=== PATIENT | female | born 1995 | race Caucasian/White ===

== ENCOUNTER → 2017-10-21 18:05 | Outpatient (CLI) | payer SELFPAY ==
[2017-10-24 12:06] LABS: Neisseria gonorrhoeae, NAA Negative (Negative)
== END ==
PROVIDERS: Family Provider Family Medicine; PCP Family Medicine; Visit Provider Obstetrics & Gynecology
DX: Z34.90 Encounter for supervision of normal pregnancy, unspecified, unspecified trimester (principal); O23.42 Unspecified infection of urinary tract in pregnancy, second trimester
CPT/HCPCS: 87086; 87088; 87186; 87491; 87591

== ENCOUNTER → 2017-11-04 14:03 | Outpatient (CLI) | payer SELFPAY ==
--- NOTE | 2017-11-04 14:05 | US_ITS ---
US OB /maternal detail: INDICATION: ITS.REASON: 20 wk Anatomy Scan-OB Complete ORDERING PHYSICIAN: Katie Fernandez MD PATIENT AGE: 22 years TECHNIQUE: ultrasound transabdominal scanning. COMPARISON: No previous relevant studies. FINDINGS: Single viable intrauterine gestation. Breech position. Placenta: Anterior with lateral wraparound placenta grade 1. There is average amount fluid. The cervix appears satisfactory. Closed and measuring 4 cm in length. Complete survey performed and was unremarkable on the submitted images as in PACS. No discrete anomalies identified on survey imaging by technologist. Active fetus. Three-vessel cord with satisfactory umbilical cord insertion. 4- chamber heart noted. Survey of brain & ventricles. Face and neck survey unremarkable. Diaphragm and chest views unremarkable. Abdomen: Both kidneys noted and unremarkable. Stomach noted and satisfactory. Spine: Survey of the spine satisfactory with no anomalies identified nor imaged. Both arms and legs noted. Amniotic Fluid: Adequate. Maternal adnexa: No significant findings. Measurements: Average ultrasound age 20 weeks 0 days. Gestational Age 20 weeks 1 day. Estimated due date by ultrasound age 903/24/2018. Estimated weight 324 grams. 36 percentile BPD = 20 weeks 1 day OFD = 20 weeks 1 day HC = 19 weeks 3 days AC = 20 weeks 0 days FL = 20 weeks 1 day Heart Rate = 153 BPM Cerebellum = 20 weeks 4 days Humerus = 20 weeks 4 days HC/AC is 1.13. CI is 79%. FL/BPD is 70%. FL/AC is 22%. IMPRESSION: Single live fetus in presentation with an average ultrasound age of 20 weeks 0 days. All parameters correlate. No obvious anomaly. Please see above for detail
== END ==
LOC: RAD 14:03
PROVIDERS: Family Provider Family Medicine; PCP Family Medicine; Visit Provider Obstetrics & Gynecology
DX: Z36.0 Encounter for antenatal screening for chromosomal anomalies (principal)
CPT/HCPCS: 76811

== ENCOUNTER → 2017-11-20 14:47 | Outpatient (CLI) | payer SELFPAY ==
[2017-11-20 15:34] LABS: Basophils % 0.3 % (0.1-2.0); Eosinophils # 0.2 K/mm3 (0.0-0.4); Eosinophils % 1.6 % (0.1-12.0); Hematocrit 31.8 % (37.0-47.0); Hemoglobin 10.8 g/dL (12.2-16.2); Lymphocytes # 2.3 K/mm3 (0.7-4.5); Lymphocytes % 21.9 K/mm3 (10-50); Mean Corpuscular HGB Conc 33.9 g/dL (31.8-35.4); Mean Corpuscular Hemoglobin 30.8 pg (27.0-31.2); Mean Corpuscular Volume 90.9 fl (81-99); Mean Platelet Volume 7.2 fl (7.4-10.4); Monocytes # 0.7 K/mm3 (0.1-1.0); Monocytes % 6.2 % (1.7-9.3); Neutrophils # 7.4 K/mm3 (1.8-7.8); Neutrophils % 70.2 % (37.0-80.0); Platelet Count 266 K/mm3 (142-424); Red Blood Count 3.49 M/mm3 (4.20-5.40); Red Cell Distribution Width 13.3 % (11.5-17.5); White Blood Count 10.5 K/mm3 (4.5-13.0)
[2017-11-20 18:42] LABS: Thyroid Stimulating Hormone 2.45 uIU/ml (0.516-4.13)
[2017-11-22 08:34] LABS: HIV Screen 4th Generation wRfx Non Reactive (Non Reactive)
[2017-11-22 13:01] LABS: Hepatitis B Surface Antigen Negative (Negative); Hepatitis C Antibody <0.1 s/co ratio (0.0-0.9); Rapid Plasma Reagin Ab Titer Non Reactive (NonRea<1:1); Rubella Antibodies, IgG 1.43 index (Immune >0.99)
[2017-11-22 18:12] LABS: Hemoglobin (Hgb) Solubility Negative (Negative)
== END ==
PROVIDERS: Visit Provider Obstetrics & Gynecology
DX: Z83.2 Family history of diseases of the blood and blood-forming organs and certain disorders involving the immune mechanism (principal)
CPT/HCPCS: 36415; 83021; 84443; 85025; 85660; 86592; 86703; 86762; 86850; 86870; 87086; 87088; 87186; 87340; 87380; G0432

== ENCOUNTER 2018-01-01 12:39 | Outpatient (CLI) | payer SELFPAY ==
[2018-01-01 13:25] VITALS: BP 120/66; PULSE 97; RESP 18; TEMP 37.1
== END 2018-01-01 13:40 | disposition home or self-care (01) ==
LOC: LAB 12:39 → INF 13:16
PROVIDERS: Visit Provider Obstetrics & Gynecology
DX: Z34.90 Encounter for supervision of normal pregnancy, unspecified, unspecified trimester (principal)
CPT/HCPCS: 87086; 87088; 87186; 96372

== ENCOUNTER → 2018-01-01 18:48 | Outpatient (REF) | payer SELFPAY | LOC: LAB 18:48 | PROVIDERS: Visit Provider Nurse Practitioner Obstetrics & Gynecology | DX: Z34.90 Encounter for supervision of normal pregnancy, unspecified, unspecified trimester (principal) ==

== ENCOUNTER 2018-01-02 13:38 | Outpatient (CLI) | payer SELFPAY ==
[2018-01-02 13:46] VITALS: BP 125/54; PULSE 88; RESP 18; TEMP 36.7; O2SAT 97
== END 2018-01-02 14:01 | disposition home or self-care (01) ==
LOC: INF 13:38
PROVIDERS: Family Provider Family Medicine; PCP Family Medicine; Visit Provider Obstetrics & Gynecology
DX: N39.0 Urinary tract infection, site not specified (principal)
CPT/HCPCS: 96372

== ENCOUNTER → 2018-01-27 17:07 | Outpatient (REF) | payer MEDICAID, SELFPAY | LOC: LAB 17:07 | PROVIDERS: Visit Provider Obstetrics & Gynecology | DX: Z34.90 Encounter for supervision of normal pregnancy, unspecified, unspecified trimester (principal) | CPT/HCPCS: 87086; 87088; 87186 ==

== ENCOUNTER → 2018-02-21 13:47 | Outpatient (CLI) | payer MEDICAID, SELFPAY ==
--- NOTE | 2018-02-21 | US_ITS ---
US OB follow up, US OB biophysical profile, US SD Ratio umbilcal artery HISTORY: Evaluate growth and fluid volume ITS.REASON: US Growth MARKO ORDERING PHYSICIAN: Katie Fernandez MD PATIENT AGE: 23 years COMPARISON: 11/04/2017 TECHNIQUE: ultrasound transabdominal scanning. FINDINGS: Single viable intrauterine gestation. Breech position. Placenta: Anterior placenta grade 2. There is average amount fluid. MARKO is 11 cm The cervix appears satisfactory. Closed and measuring 3 cm in length. Measurements: Average ultrasound age 36w2d. Gestational Age 35w5d. Estimated due date by ultrasound age 0903/19/2018. Estimated weight 2681 grams. BPD = 37w2d OFD = --- HC = 37w6d AC = 34w6d FL = 35w1d Growth Percentile= 42% Heart Rate = 142 HC/AC is 1.07 (0.93-1.11). CI is 78% (70-86%). FL/BPD is 74% (71-86%). FL/AC is 22% (20-24%). Biophysical profile is 8 of 8. SD ratio of 2.5. Resistive index of the umbilical artery of 0.6. The placenta is anterior and fundal and grade 2. No previa or abruption There is a three-vessel cord. IMPRESSION: There is a single live fetus in breech presentation with average ultrasound age of 36 weeks 2 days. Estimated weight is 2681 g which is 42 percentile based on established due date of 03/23/2018. No obvious anomalies Biophysical profile 8 of 8 with unremarkable Doppler evaluation of the umbilical artery. The placenta is posterior and fundal and grade 2 with average amniotic fluid volume
== END ==
PROVIDERS: Family Provider Family Medicine; PCP Family Medicine; Visit Provider Obstetrics & Gynecology
DX: Z34.90 Encounter for supervision of normal pregnancy, unspecified, unspecified trimester (principal)
CPT/HCPCS: 76816; 76819; 76820

== ENCOUNTER → 2018-02-26 07:59 | Outpatient (REF) | payer MEDICAID, SELFPAY | LOC: LAB 07:59 | PROVIDERS: Family Provider Family Medicine; PCP Family Medicine; Visit Provider Obstetrics & Gynecology | DX: Z34.90 Encounter for supervision of normal pregnancy, unspecified, unspecified trimester (principal) | CPT/HCPCS: 86403 ==

== ENCOUNTER 2018-03-05 14:51 | Outpatient (CLI) | payer MEDICAID, SELFPAY ==
[2018-03-05 15:35] VITALS: BP 110/56; PULSE 84; RESP 18; TEMP 36.3
== END 2018-03-05 15:50 | disposition home or self-care (01) ==
LOC: INF 14:54
PROVIDERS: Family Provider Family Medicine; PCP Family Medicine; Visit Provider Obstetrics & Gynecology
DX: Z34.90 Encounter for supervision of normal pregnancy, unspecified, unspecified trimester (principal)
CPT/HCPCS: 87086; 87088; 87186; 96372

== ENCOUNTER 2018-03-06 15:35 | Outpatient (CLI) | payer MEDICAID, SELFPAY ==
[2018-03-06 15:55] VITALS: BP 114/74; PULSE 79; RESP 18; O2SAT 100
== END 2018-03-06 16:05 | disposition home or self-care (01) ==
LOC: INF 15:41
PROVIDERS: Family Provider Family Medicine; PCP Family Medicine; Visit Provider Obstetrics & Gynecology
DX: O23.40 Unspecified infection of urinary tract in pregnancy, unspecified trimester (principal); O32.1XX0 Maternal care for breech presentation, not applicable or unspecified; Z3A.37 37 weeks gestation of pregnancy
CPT/HCPCS: 96372

== ENCOUNTER → 2018-03-13 16:31 | Outpatient (REF) | payer MEDICAID, SELFPAY | LOC: LAB 16:31 | PROVIDERS: Visit Provider Nurse Practitioner Obstetrics & Gynecology | DX: O23.40 Unspecified infection of urinary tract in pregnancy, unspecified trimester (principal) | CPT/HCPCS: 87086; 87088; 87186 ==

== ENCOUNTER 2018-03-17 09:15 | Inpatient (IN) ==
[2018-03-17 10:43] LABS: Basophils % 0.3 % (0.1-2.0); Eosinophils # 0.2 K/mm3 (0.0-0.4); Eosinophils % 2.4 % (0.1-12.0); Hematocrit 29.6 % (37.0-47.0); Hemoglobin 9.8 g/dL (12.2-16.2); Lymphocytes # 1.8 K/mm3 (0.7-4.5); Lymphocytes % 22.2 K/mm3 (10-50); Mean Corpuscular HGB Conc 33.1 g/dL (31.8-35.4); Mean Corpuscular Hemoglobin 28.9 pg (27.0-31.2); Mean Corpuscular Volume 87.4 fl (81-99); Mean Platelet Volume 8.1 fl (7.4-10.4); Monocytes # 0.5 K/mm3 (0.1-1.0); Monocytes % 6.5 % (1.7-9.3); Neutrophils # 5.4 K/mm3 (1.8-7.8); Neutrophils % 68.6 % (37.0-80.0); Platelet Count 216 K/mm3 (142-424); Red Blood Count 3.38 M/mm3 (4.20-5.40); Red Cell Distribution Width 13.7 % (11.5-17.5); White Blood Count 7.9 K/mm3 (4.8-10.8)
[2018-03-17 15:39] LABS: Microscopic, Urine URINE MICROSCOPIC (MICROSCOPIC)
[2018-03-17 15:43] LABS: Appearance,Urine SL CLOUDY (Clear); Bilirubin,Urine Negative (Negative); Blood, Urine Negative (Negative); Color,Urine YELLOW (Yellow); Glucose,Urine (UA) Negative (Negative); Ketones,Urine Negative (Negative); Leukocyte Esterase,Urine 2+ (Negative); Protein,Urine Negative (Negative); Urobilinogen,Urine 0.2 EU/dl (0.2)
[2018-03-17 16:01] LABS: Bacteria,Urine 4+ /lpf; Squamous Epithelial Cell,Urine 20-50 #/hpf (0-5); WBC,Urine 20-50 #/hpf (0-3)
[2018-03-17 16:07] LABS: Amphetamine/Metha Screen,Urine Negative ng/mL (<1000); Barbiturates Screen,Urine Negative ng/mL (<200); Benzodiazepines Screen,Urine Negative ng/mL (<200); Cannabinoid Screen,Urine Negative ng/mL (<50); Cocaine Screen,Urine Negative ng/mL (<300); Methadone Screen,Urine Negative ng/mL (<300); Opiate Screen,Urine Negative ng/mL (<300); Phencyclidine Screen,Urine Negative ng/mL (<25)
--- NOTE | 2018-03-18 07:53 | Pharmacy Consult Notes ---
[facility] Pharmacy VTE Monitoring - Patient Demographics Admission date: 03/18/18 Report Date: 03/18/18 Time: 07:53 Allergies/Adverse Reactions: Patient Allergies No Known Allergies Allergy (Verified 03/13/18 14:01) Height: 1.73 m Weight: 81.647 kg - VTE Risk Labs: VTE Related Lab Results Hgb 9.8 g/dL (12.2-16.2) L 03/17/18 10:25 Hct 29.6 % (37.0-47.0) L 03/17/18 10:25 Plt Count 216 K/mm3 (142-424) 03/17/18 10:25 Clinical Trial Participant: No - Prophylaxis VTE Prophylaxis Ordered?: Yes Types of VTE Prophylaxis: TEDS Knee High
--- NOTE | 2018-03-19 11:30 | History & Physical Report ---
OB - H&P: HPI Antepartum - History of Present Illness Chief complaint: unstable lie of fetus History of present illness: 39 4/7 with known breech presentation who was scheduled for primary CS today. Ultrasound performed before taking her to the OR and fetus was noted in vertex presentation She had been breech for 4 consecutive weeks Cervix unfavorable, closed/25%, and she was given option for expectant management vs. IOL After discussion with family, she elected to proceed with IOL She was advised that with unfavorable cervix this may be a process spanning several days; we will begin today with prostaglandin ripening overnight with cervidil and proceed in the morning according to cervical exam status reassuring Chronic/recurrent UTI with uncertain etiology Has been treated multiple times without success even though appropriate antibiotic coverage for both treatment and prophylactic antibiotics, according to C&S results Most recent treatment was with IV Rocephin x 3 consecutive doses (which was enterobacter and sensitive to rocephin) but did not resolve infection She was subsequently started on Levaquin and will continue this while in house Planning tubal ligation - History of Present Medical complications: genitourinary (chronic UTI) [facility] History I have reviewed the patient's past medical history: Yes Medical History: Reports:: Urinary Tract Infection Denies:: Anxiety, Depression, Diabetes Mellitus Type 1, Hyperlipidemia, Hypertension, Migraine, MRSA Laterality Cases: Bilateral: Other Other Surgeries: Yes: Other. No: Amputation: No Fractures: No - *Social History Smoking Status: Never smoker Alcohol Intake: never Substance Use Type: denies use - Psychiatric History Pschychiatric History:: Denies:: Anxiety, Depression *Family Hx:: Heart Attack Para: 1 Review of Systems - Review of Systems Review of systems:: pertinent systems reviewed and negative unless documented below - Constitutional Denies chills, Denies fever(s) - *Cardiovascular Denies chest pain, Denies shortness of breath - *Respiratory Denies cough, Denies shortness of breath - *Gastrointestinal Denies abdominal pain - *Musculoskeletal Denies back pain (no flank pain) - Integumentary/Breasts Denies rash - *Neurologic Denies headache(s) - Psychiatric Denies anxiety, Denies depression - Hematologic/Lymphatic Denies easy bleeding, Denies easy bruising Meds Home Medications Medication Instructions Recorded Confirmed Type 1 tab PO QHS 10/21/17 03/17/18 History vitamin,calcium,bmxpesem-iqxn-nzxse acid tablet Allergies Allergy/AdvReac Type Severity Reaction Status Date / Time No Known Allergies Allergy Verified 03/13/18 14:01 OB - H&P: Exam - Physical Exam Vital signs: Temp Pulse Resp BP Pulse Ox 98.5 F 90 18 129/76 100 03/18/18 19:58 03/18/18 19:58 03/18/18 19:58 03/18/18 19:58 03/18/18 19:58 - Constitutional no acute distress - Routine HEENT Exam ENT: Present: mucous membranes moist - Routine Respiratory Exam Present: CTA bilaterally. Absent: respiratory distress - Routine Cardiovascular Exam Present: RRR. Absent: tachycardia - Routine Abdominal Exam Present: soft. Absent: tenderness, distended - Routine Exam External: Absent: vulvar erythema, vulvar tenderness, discharge - Routine Extremities Exam Absent: edema - Routine Skin Exam Absent: rash - Routine Neurological Exam Present: alert, oriented X3 - Routine Psychiatric Exam Absent: depressed, anxious - Detailed Labor and Delivery Exam Dilation (cm): 0 Effacement (%): 25 Cervix position: posterior station: -3 Consistency: soft Membranes: intact Baseline heart rate: 150 monitor accelerations: Present monitor decelerations: None logger variability: Moderate (11-25) OB - Results - Imaging and Cardiology nst Status: image reviewed by me (150 baseline, moderate variability, reactive. Category 1.) OB - A/P Antepartum (1) with 39 completed weeks gestation Current visit: Yes Status: Acute (2) Unstable lie of fetus Current visit: Yes Status: Acute (3) Breech presentation Current visit: No Status: Acute (4) tubal ligation planned Problem details: consent form signed Current visit: No Status: Acute (5) Anemia affecting Problem details: Hgb 10.9 Normal Hgb electrophoresis Current visit: No Status: Acute (6) Abnormal antibody titer Problem details: Anti-Hanna Current visit: No Status: Acute (7) Recurrent urinary tract infection affecting Problem details: failed treatment with macrobid & bactrim S/P treatment with Rocephin; current prophylaxis with augmentin Current visit: No Status: Acute (8) Late care affecting in second trimester Problem details: NOB visit 18 08/14 Current visit: No Status: Acute (9) Urinary tract infection during in second trimester, antepartum Current visit: No Status: Acute (10) Family history of hemoglobinopathy Problem details: Patient paternal aunt and uncle with sickle cell (patient uncertain if trait or disease) Patient hgb electrophoresis normal Current visit: No Status: Chronic (11) Tetrahydrocannabinol (THC) use disorder, moderate, dependence Problem details: Continued positive UDS throughout G1 Current visit: No Status: Chronic - Additional Plan Additional Information:: Admission for IOL Begin with cervical ripening (cervidil) Vertex presentation confirmed by formal ultrasound Continue Levaquin Desires NCB and declines epidural Planning tubal ligation
--- NOTE | 2018-03-19 12:46 | Progress Note ---
[facility] Anesthesia Checklist - Patient Identification Patient Identification: Arm Band, Verbal (Name & ) - Structural Data Admitted From: Inpatient Planned Operative Procedure/s: Primary Consent for Planned Operative Procedure(s) Verified: Yes Verified Documents: Surgical Consent, History and Physical - Additional verifications Patient : Yes Anesthesia Reactions: No - Airway Assessment C-Spine Mobility Assessed: Yes TMJ Mobility Assessed: Yes Dentition: Good Dentition - Neurological Assessment Level of Consciousness: Awake Hx Seizures: No Numbness or tingling in extremities: No - Anesthesia Plan Anesthesia Risk discussed: Yes Anesthesia Plan: Verified ASA Class: II Anesthesia Type: Spinal [facility] History I have reviewed the patient's past medical history: Yes Medical History: Reports:: Urinary Tract Infection Denies:: Anxiety, Depression, Diabetes Mellitus Type 1, Hyperlipidemia, Hypertension, Migraine, MRSA Laterality Cases: Bilateral: Other Other Surgeries: Yes: Other. No: Amputation: No Fractures: No - *Social History Smoking Status: Never smoker Alcohol Intake: never Substance Use Type: denies use - Psychiatric History Pschychiatric History:: Denies:: Anxiety, Depression *Family Hx:: Heart Attack Para: 1
--- NOTE | 2018-03-19 14:47 | Progress Note ---
[facility] Anesthesia Record Part I Intake, IV Amount: 2,700 Estimated blood loss (mL): 700 Urine output (mL): 300 Blood Products used (#): none Blood Pressure: 138/75 SaO2: 97 Pulse Rate: 84 Respiratory Rate: 20 Temperature: 98.4 F Patient is:: Awake, Stable Stable to PACU at:: 14:38
--- NOTE | 2018-03-19 14:48 | Progress Note ---
[facility] Anesthesia Record Part II Discharge Time: 15:08 Destination: Obstetric PACU nurse assessment reviewed?: Yes Patient Condition:: Good Anesthesia Complications:: None
--- NOTE | 2018-03-20 09:00 | Progress Note ---
Labor Note - Subjective: Date: 03/18/18 Time: 14:05 irregular contractions Comment:: cervical ripening with PV cytotec - Objective: NST:: Reactive Contractions:: infrequent Cervical Dilation:: 1 ((fingertip)) Effacement:: 25% Station: -3 - Fetus: Monitoring?: Yes monitoring type:: External - Assessment: Patient Problems: All Active Problems with 39 completed weeks gestation (Acute) Unstable lie of fetus (Acute) Breech presentation (Acute) tubal ligation planned (Acute) Anemia affecting (Acute) Abnormal antibody titer (Acute) Recurrent urinary tract infection affecting (Acute) Late care affecting in second trimester (Acute) Urinary tract infection during in second trimester, antepartum (Acute) Family history of hemoglobinopathy (Chronic) Tetrahydrocannabinol (THC) use disorder, moderate, dependence (Chronic) (Acute) - Plan: Additional information:: IOL with unfavorable cervix Needs continued cervical ripening with cytotec; s/p 1 pv dose and plan second pv dose Will reassess after second dose to determine whether continue prostaglandin induction or begin pitocin augmentation Continue routine monitoring with NST status has remained reassuring Continue Levaquin for UTI
--- NOTE | 2018-03-20 09:08 | Progress Note ---
Labor Note - Subjective: Date: 03/19/18 Time: 11:00 regular contraction Comment:: S/P PV cervidil overnight day 1, followed by 2 doses of PV cytotec day 2 Low dose pitocin augmentation over 2nd night and began routine pitocin augmentation the morning of day 3 (today) Progression has not been as quick as expected now that cervix favorable and in light of previous breech presentation, requested radiology rescan patient to document presentation still vertex Nursing staff also noted suspected foot palpated on last cervical exam Radiology performed bedside ultrasound and presentation noted as breech this morning Patient cervix dilated 3cm and footling breech presentation She is not a candidate for external cephalic version and is counseled for primary CS to be done this morning All questions answered - Objective: NST:: Reactive Contractions:: every 2-3 minutes Cervical Dilation:: 3 Effacement:: 50% Station: -2 Membranes: intact - Fetus: Monitoring?: Yes monitoring type:: External - Assessment: Patient Problems: All Active Problems with 39 completed weeks gestation (Acute) Unstable lie of fetus (Acute) Breech presentation (Acute) tubal ligation planned (Acute) Anemia affecting (Acute) Abnormal antibody titer (Acute) Recurrent urinary tract infection affecting (Acute) Late care affecting in second trimester (Acute) Urinary tract infection during in second trimester, antepartum (Acute) Family history of hemoglobinopathy (Chronic) Tetrahydrocannabinol (THC) use disorder, moderate, dependence (Chronic) (Acute) - Plan: Comment:: Patient cervix dilated 3cm and footling breech presentation She is not a candidate for external cephalic version and is counseled for primary CS to be done this morning NST reamains reassuring All questions answered
--- NOTE | 2018-03-20 09:12 | Operative Note ---
Date of procedure: 03/19/18 Pre-op Diagnosis:: 1. 39 5/7 weeks 2. Footling breech presentation 3. Unstable lie 4. Anemia 5. Positive antibody screen (anti-Hanna) 6. Chronic/recurrent UTI in 7. Undesired fertility Post-op Diagnosis:: 1. 39 5/7 weeks 2. Footling breech presentation 3. Unstable lie 4. Anemia 5. Positive antibody screen (anti-Hanna) 6. Chronic/recurrent UTI in 7. Undesired fertility Procedure performed:: 1. Primary Low Transverse Section 2. Bilateral salpingectomy Surgeon:: Katie Fernandez MD [employer] TECHNICIAN:: Marcial Guillen Anesthesia: spinal Estimated blood loss (mL): 700 Operative findings:: vigorous female infant footling breech presentation, grossly normal uterus, ovaries and fallopian tubes Operative note:: The patient was taken to the OR and spinal administered without difficulty. She was prepped and draped in normal sterile fashion. A pfannenstiel skin incision was made with the scalpel and carried down to the fascia. The fascia was incised in the midline and sharply dissected off the rectus muscles. The muscles were in the midline and the peritoneum was entered sharply and extended bluntly. The Jori-O self retaining retractor was placed in the abdomen and a bladder flap was created. The uterus was incised in the lower u terine segment in a transverse fashion and extended bluntly. Amniotomy was performed and clear fluid noted. The was delivered in controlled fashion, without complication or shoulder dystocia. The was vigorous at and handed to awaiting pediatricians for evaluation after cord clamped and cut. The placenta was manually extracted and noted to be intact. The uterus was repaired with 0-vicryl in a running/locked fashion. After the hysterotomy was closed, the fallopian tubes were excised on both sides using the harmonic scalpel. All pedicles were hemostatic; Susie was placed over fallopian tube pedicles and hysterotomy repair for additional hemostasis postop. The peritoneum was closed with 2-0 vicryl in running fashion. The subcutaneous fat was closed with 2-0 vicryl in interrupted fashion. The skin was closed with vini. The patient tolerated the procedure well. Sponge, lap, needle and instrument counts were correct x 2. She was taken to PACU in stable condition. Condition: stable Disposition: PACU Specimens:: 1. Placenta 2. Bilateral fallopian tubes Complications:: None
--- NOTE | 2018-03-20 14:13 | Progress Note ---
Internal Medicine - PN: Subj *Date: 03/20/18 *Time: 14:10 Interval history: POD #1 primary LTCS with bilateral salpingectomy No complaints Tolerating regular diet, ambulating and voiding without difficulty Lochia small Pain control sufficient Postop labs not drawn yet Exam Vital signs and Labs for Last 24 Hours: Temp Pulse Resp BP Pulse Ox 97.7 F 76 13 147/63 97 03/19/18 15:23 03/19/18 15:23 03/19/18 15:23 03/19/18 15:23 03/19/18 15:23 Laboratory Results - last 24 hr 03/17/18 10:25: Blood Type A Positive, Antibody Screen Positive, Crossmatch (AHG) See Detail 03/19/18 13:20: Urine Color Yellow, Urine Appearance Clear, Urine pH 7.5, Ur Specific [place] 1.015, Urine Protein Negative, Urine Glucose (UA) Negative, Urine Ketones Negative, Urine Blood Negative, Urine Nitrate Negative, Urine Bilirubin Negative, Urine Urobilinogen 1.0, Ur Leukocyte Esterase 2+ A, Urine RBC None, Urine WBC 20-50 A, Ur Squamous Epith Cells 3-5, Ur Transition Epith Cell 5-10, Urine Bacteria 1+, Hyaline Casts Occ I & O for Last 24 hours: Intake & Output 03/18/18 03/19/18 03/20/18 03/21/18 11:59 11:59 11:59 11:59 Intake Total 50 / 50 2700 / 2700 Output Total 300 / 300 Balance 50 / 50 2400 / 2400 Weight 180 lb - *Routine HEENT Exam Head: Present: normocephalic ENT: Present: mucous membranes moist - *Routine Respiratory Exam Present: CTA bilaterally. Absent: respiratory distress - *Routine Cardiovascular Exam Present: RRR - *Routine Abdominal Exam Present: soft, normoactive bowel sounds, tenderness (mild, appropriate for postop) - *Routine Extremities Exam Present: edema (trace) - *Routine Skin Exam Present: warm. Absent: rash - *Routine Neurological Exam Present: alert, oriented X3 - Routine Psychiatric Exam Present: normal affect. Absent: depressed, anxious Assessment and Plan (1) with 39 completed weeks gestation Current visit: Yes Status: Acute Category: Medical Code(s): Z3A.39 - 39 weeks gestation of (2) Unstable lie of fetus Current visit: Yes Status: Acute Category: Medical Code(s): O32.0XX0 - Maternal care for unstable lie, not applicable or unspecified (3) Breech presentation Current visit: No Status: Acute Category: Medical Code(s): O32.1XX0 - Maternal care for breech presentation, not applicable or unspecified (4) tubal ligation planned Problem details: consent form signed Current visit: No Status: Acute Category: Medical (5) Anemia affecting Problem details: Hgb 10.9 Normal Hgb electrophoresis Current visit: No Status: Acute Category: Medical Code(s): O99.019 - Anemia complicating , unspecified trimester (6) Abnormal antibody titer Problem details: Anti-Hanna Current visit: No Status: Acute Category: Medical (7) Recurrent urinary tract infection affecting Problem details: failed treatment with macrobid & bactrim S/P treatment with Rocephin; current prophylaxis with augmentin Current visit: No Status: Acute Category: Medical Code(s): O23.40 - Unspecified infection of urinary tract in , unspecified trimester (8) Late care affecting in second trimester Problem details: NOB visit 18 08/14 Current visit: No Status: Acute Category: Medical (9) Urinary tract infection during in second trimester, antepartum Current visit: No Status: Acute Category: Medical Code(s): O23.42 - Unspecified infection of urinary tract in , second trimester (10) Family history of hemoglobinopathy Problem details: Patient paternal aunt and uncle with sickle cell (patient uncertain if trait or disease) Patient hgb electrophoresis normal Current visit: No Status: Chronic Category: Medical (11) Tetrahydrocannabinol (THC) use disorder, moderate, dependence Problem details: Continued positive UDS throughout G1 Current visit: No Status: Chronic Category: Medical Code(s): F12.20 - Cannabis dependence, uncomplicated (12) delivery delivered Current visit: Yes Status: Acute Category: Medical Code(s): O82 - Encounter for delivery without indication - Assessment and plan all Dx Assessment and Plan for all problems:: POD #1 Routine postop care Check H/H today Continue IV Levaquin while in house Possible discharge home in am Discussed urology consult , but expect this will be scheduled as an outpatient
[2018-03-20 15:15] LABS: Hematocrit 26.4 % (37.0-47.0); Hemoglobin 8.9 g/dL (12.2-16.2)
--- NOTE | 2018-03-21 12:36 | Discharge Summary ---
General - General Admission date:: 03/17/18 Discharge date: 03/21/18 HPI HPI: POD #2 primary LTCS/bilateral salpingectomy for breech presentation and undesired fertility No complaints Ambulating and voiding without difficulty lochia appropriate and pain control sufficient asymptomatic with acute on chronic anemia ready for discharge today Hospital Course Hospital Course: as per HPI Objective Vital signs: Temp Pulse Resp BP Pulse Ox 98.5 F 77 18 126/68 100 03/21/18 08:00 03/21/18 08:00 03/21/18 08:00 03/21/18 08:00 03/21/18 08:00 no acute distress - *Routine Respiratory Exam Present: CTA bilaterally. Absent: respiratory distress - *Routine Cardiovascular Exam Present: RRR - *Routine Abdominal Exam Present: soft, tenderness (mild/appropriate postop pain). Absent: distended, guarding - *Routine Extremities Exam Present: edema (trace) - *Routine Skin Exam Present: intact (incision intact with vini; no erythema/induration/drainage) - *Routine Neurological Exam Present: alert, oriented X3 - Routine Psychiatric Exam Present: normal affect. Absent: depressed, anxious Results Labs on day of discharge: Labs from last 24 hours 03/20/18 14:43 Hgb 8.9 L Hct 26.4 L Preliminary micro results at discharge 03/19/18 13:20 Urine Culture - Preliminary Urine,Catheterized NO GROWTH AFTER 24 HOURS DS: Diagnosis - Discharge Diagnosis (1) with 39 completed weeks gestation Status: Acute (2) Late care affecting in second trimester Status: Acute Problem details: NOB visit 18 08/14 (3) Breech presentation Status: Acute (4) Unstable lie of fetus Status: Acute (5) delivery delivered Status: Acute (6) Abnormal antibody titer Status: Acute Problem details: Anti-Hanna (7) Urinary tract infection during in second trimester, antepartum Status: Acute (8) Recurrent urinary tract infection affecting Status: Acute Problem details: failed treatment with macrobid & bactrim S/P treatment with Rocephin; current prophylaxis with augmentin (9) Anemia affecting Status: Acute Problem details: Hgb 10.9 Normal Hgb electrophoresis (10) Acute blood loss anemia Status: Acute Problem details: chronic anemia during with acute on chronic anemia postop secondary to acute intraoperative blood loss (as expected) (11) Tetrahydrocannabinol (THC) use disorder, moderate, dependence Status: Chronic Problem details: Continued positive UDS throughout G1 (12) Family history of hemoglobinopathy Status: Chronic Problem details: Patient paternal aunt and uncle with sickle cell (patient uncertain if trait or disease) Patient hgb electrophoresis normal (13) tubal ligation planned Status: Acute Problem details: consent form signed Discharge Plan - Patient Discharge Instructions ACTIVITY: Continue current activity, No heavy lifting DIET: regular diet Additional Instructions: FOLLOW-UP WITH DR. AGUIRRE ON NO DRIVING FOR 2 WEEKS NO HEAVY LIFTING NOTHING IN VAGINA FOR 6 WEEKS Patient Instructions: How to Care for a Surgical Wound, [facility] Post Discharge Instructions - Follow up Plan Disposition: Home, Self-Snf Medications: Home Medications Medication Instructions Recorded Confirmed Type 1 tab PO QHS 10/21/17 03/17/18 History vitamin,calcium,brweuayi-pyxh-knxyg acid tablet Prescriptions/Medication Reconciliation: New Oxycodone HCl [OxyIR 5mg tablet] 5 mg PO Q4HP PRN #40 tab PRN Reason: Moderate Pain Ibuprofen [Motrin 400mg tablet] 800 mg PO Q4HP PRN #30 tab PRN Reason: Mild Pain Continue vitamin,calcium,ahrgrjlr-ezfj-kjefz acid tablet 1 tab PO QHS - Additional Information Additional Information: patient should take supplemental iron (ferrous sulfate) along with vitamin, 1-2 times/day depending on tolerance. Because both iron and narcotic pain medication can cause constipation, she should also consider taking a stool softener (colace, senekot, dulcolax) daily for the first 1-2 weeks.
[2018-03-21 14:07] LABS: Microscopic, Urine URINE MICROSCOPIC (MICROSCOPIC)
[2018-03-21 14:24] LABS: Appearance,Urine CLOUDY (Clear); Bilirubin,Urine Negative (Negative); Blood, Urine 3+ (Negative); Color,Urine YELLOW (Yellow); Glucose,Urine (UA) Negative (Negative); Ketones,Urine Negative (Negative); Leukocyte Esterase,Urine 3+ (Negative); Protein,Urine Negative (Negative); Specific Gravity, Urine <= 1.005 (1.005-1.030); Urobilinogen,Urine 0.2 EU/dl (0.2)
[2018-03-21 14:56] LABS: Bacteria,Urine 2+ /lpf; RBC,Urine 20-50 #/hpf (0-3); Squamous Epithelial Cell,Urine TNTC #/hpf (0-5); WBC,Urine TNTC #/hpf (0-3)
== END 2018-03-21 13:15 | disposition home or self-care (01) ==
LOC: OB 09:15
PROVIDERS: ADMIT Obstetrics & Gynecology; ATTEND Obstetrics & Gynecology

== ENCOUNTER 2020-10-24 11:37 | Emergency (ER) | payer MEDICAID, SELFPAY ==
[2020-10-24 11:38] VITALS: BP 123/73; PULSE 83; RESP 18; TEMP 36.7; O2SAT 100; BMI 21.7
[2020-10-24 11:48] VITALS: BMI 21.7
--- NOTE | 2020-10-24 11:48 | HMH.EDGENADL ---
ED Disposition Clinical Impression: Pre-syncope, Palpitations Disposition: Home, Self-Care Condition on Discharge: Good Additional Instructions: Take meds as prescribed for anxiety. Follow-up with PCP as if you do have recurrent episodes event monitor may be indicated to capture spells to ensure no dysrhythmia. Return immediately if any recurrent episodes, lightheadedness/syncope, headache, shortness of breath, or other new concerning symptoms. Prescriptions: hydrOXYzine HCL [Hydroxyzine HCl] 25 mg PO BID PRN #30 tab PRN Reason: Anxiety Transmission Status: Pending to [facility] Referrals: Tamy Hicks MD [Referring] - - Critical Care Critical Care Time: No Attestation: On , the high probability of a clinically significant, sudden or life threatening deterioration of the following system(s) required my full and direct attention, intervention and personal management. The time I documented below is in addition to time spent performing reported procedures but includes the following listed in this critical care notation. Medical Decision Making - Medical Records Medical records reviewed: Yes: I reviewed the patient's medical records. - Sohan Inquiry Pt receiving controlled substance: No Vital Signs: 10/24/20 11:38 Temperature 98.0 F Temperature Source Oral Pulse Rate [Left Radial] 83 Respiratory Rate 18 Blood Pressure [Left Arm] 123/73 Blood Pressure Mean [Left Arm] 89 Blood Pressure Source [Left Arm] Automatic Cuff Blood Pressure Position [Left Arm] Sitting 02 Sat by Pulse Oximetry 100 Oxygen Delivery Method Room Air - Lab Data Lab Results 10/24/20 12:00: WBC 7.5, RBC 4.40, Hgb 12.8, Hct 38.9, MCV 88.4, MCH 29.2, MCHC 33.0, RDW 13.5, Plt Count 289, MPV 7.4, Neut % (Auto) 62.4, Lymph % (Auto) 28.3, [place] % (Auto) 6.8, Eos % (Auto) 1.8, Baso % (Auto) 0.9, Neut # (Auto) 4.7, Lymph # (Auto) 2.1, [place] # (Auto) 0.5, Eos # (Auto) 0.1, Baso # (Auto) 0.1 10/24/20 12:00: Sodium 139, Potassium 4.2, Chloride 105, Carbon Dioxide 22, Anion Gap 16.2 H, BUN 12, Creatinine 0.70, Estimated Creat Clear 148, Estimated GFR 104, Est GFR ( Amer) 125, Glucose 116 H, Calcium 10.4 H, Total Bilirubin 0.8, AST 31, ALT 12, Alkaline Phosphatase 57, Troponin I < 0.01, Total Protein 9.2 H, Albumin 5.4 H, Globulin 3.8 H, Albumin/Globulin Ratio 1.4, TSH 1.48 10/24/20 12:00: Magnesium 1.8 10/24/20 12:00: Serum HCG, Qual Negative Result diagrams: 10/24/20 12:00 10/24/20 12:00 Orders (Tests/Meds): ORDERS Category Date Time Status Troponin I Q3H Lab 10/24/20 15:00 Ordered Troponin I Q3H Lab 10/24/20 18:00 Ordered - ECG Data Tracing #1 I reviewed this ECG and interpreted as documented below: EKG demonstrates normal sinus rhythm at a rate of 80 bpm; QTC 410 ms; no LVH; no delta waves noted Medical Decision Narrative: Patient is a 25-year-old female presenting with palpitations the emergency department. On arrival she is hemodynamically stable with a heart rate in the 80s. EKG obtained immediately demonstrates no ischemic findings or abnormal intervals. No LVH or delta waves. No dysrhythmias noted. Patient will be kept on vice chancellor throughout entirety of ER stay. Work-up will be initiated to rule out underlying organic etiology of patient's palpitations. Differential diagnosis does include endocrinopathy versus anemia versus infection versus versus electrolyte disturbance. Chest x-ray will also be obtained to ensure no acute cardiopulmonary abnormality. Negative for acute cardiopulmonary abnormality. test negative. Electrolytes within normal limits. Hemoglobin within normal limits as well as TSH. At this time, patient has remained hemodynamically stable and asymptomatic throughout ER stay. Anxiety may be playing a role so patient will be prescribed Vistaril to try. I also instructed her to follow-up with her PCP as she may need an event monitor placed if she has further e
--- NOTE | 2020-10-24 11:50 | XR_ITS ---
PROCEDURE: XR CHEST 2V CLINICAL HISTORY: heart racing Palpitations COMPARISON: No exams were available for comparison FINDINGS: The cardiomediastinal silhouette and pulmonary vascularity are within normal limits. The lungs are clear without infiltrates, suspicious nodules, or pleural effusions. No acute bony abnormalities. IMPRESSION: No acute findings. Dictated by: Michael Bustillo MD 10/24/2020 12:17 Michael Bustillo MD in [place] 10/24/2020 12:17
--- NOTE | 2020-10-24 11:52 | ECG_ITS ---
APPROVED REPORT Exam: Resting ECG HR:80 bpm ECG Measurements Heart Rate 80 AXES [place] 136 P 76 QRSd 84 QRS 79 QT 356 T 62 QTc 410 Conclusion Normal sinus rhythm Possible Left atrial enlargement Borderline ECG Electronically signed by : Marcial Lobato, 10/26/2020 17:37:40
[2020-10-24 12:10] LABS: Basophils # 0.1 K/mm3 (0-0.2); Basophils % 0.9 % (0.1-2.0); Eosinophils # 0.1 K/mm3 (0.0-0.4); Eosinophils % 1.8 % (0.1-12.0); Hematocrit 38.9 % (37.0-47.0); Hemoglobin 12.8 g/dL (12.2-16.2); Lymphocytes # 2.1 K/mm3 (0.7-4.5); Lymphocytes % 28.3 % (10-50); Mean Corpuscular Hemoglobin 29.2 pg (27.0-31.2); Mean Corpuscular Volume 88.4 fl (81-99); Mean Platelet Volume 7.4 fl (7.4-10.4); Monocytes # 0.5 K/mm3 (0.1-1.0); Monocytes % 6.8 % (1.7-9.3); Neutrophils # 4.7 K/mm3 (1.8-7.8); Neutrophils % 62.4 % (37.0-80.0); Platelet Count 289 K/mm3 (142-424); Red Cell Distribution Width 13.5 % (11.5-17.5); White Blood Count 7.5 K/mm3 (4.8-10.8)
[2020-10-24 12:12] LABS: Chloride 105 mmol/L (98-107)
[2020-10-24 12:13] LABS: Potassium 4.2 mmoL/L (3.5-5.1); Sodium 139 mmol/L (136-145)
[2020-10-24 12:15] LABS: Alanine Aminotransferase 12 U/L (12-78); Alkaline Phosphatase 57 U/L (38-126); Anion Gap 16.2 mEq/L (5-15); Aspartate Amino Transferase 31 U/L (14-36); Bilirubin,Total 0.8 mg/dl (0.2-1.3); Blood Urea Nitrogen 12 mg/dl (7-17); Carbon Dioxide 22 mmol/L (22.0-30.0); Creatinine Clearance Estimated 148 mL/min (50-200); Estimated Glomerular Filt Rate 104 ml/min (>60); GFR (African American) 125 ML/MIN (>60)
[2020-10-24 12:16] LABS: Albumin Level 5.4 g/dl (3.5-5.0); Albumin/Globulin Ratio 1.4 (1.1-1.8); Calcium 10.4 mg/dl (8.4-10.2); Globulin 3.8 g/dL (1.3-3.2); Glucose 116 mg/dl (74-100); Magnesium 1.8 mg/dl (1.6-2.3); Total Protein,Serum 9.2 g/dl (6.3-8.2)
[2020-10-24 12:28] LABS: HCG Qualitative, Serum Negative (Negative)
[2020-10-24 12:37] LABS: Troponin I < 0.01 ng/ml (0.00-0.034)
[2020-10-24 12:46] LABS: Thyroid Stimulating Hormone 1.48 uIU/mL (0.465-4.68)
[2020-10-24 13:23] VITALS: BP 125/77; PULSE 80; RESP 16; TEMP 36.7; O2SAT 100
== END 2020-10-24 13:23 | disposition home or self-care (01) ==
PROVIDERS: Emergency Provider Emergency Medicine; PCP Family Medicine
DX: R00.2 Palpitations (principal); R55 Syncope and collapse; F17.210 Nicotine dependence, cigarettes, uncomplicated
CPT/HCPCS: 71046; 80053; 83735; 84443; 84484; 84703; 85025; 93005; 99282

== ENCOUNTER 2021-02-16 16:31 | Emergency (ER) | payer MEDICAID, SELFPAY ==
[2021-02-16 16:33] VITALS: BP 131/69; PULSE 118; RESP 19; TEMP 39.3; O2SAT 100; BMI 21.7
--- NOTE | 2021-02-16 17:21 | HMH.EDUTC ---
[facility] [place] Disposition Clinical Impression: Viral syndrome Disposition: Home, Self-Care Condition on Discharge: Good Instructions: DI for Fever (Symptom) -- Adult, DI for COVID-19 (Suspected or Confirmed ), Preventing the Spread of Coronavirus Discharge Instructions Additional Instructions: *Monitor Temp, Over the counter Motrin or Tylenol as directed/as needed Tylenol every 4 hours and Motrin every 6 hours (as long as your family doctor has told you that you can take it) for fever or pain. and straight to ER if unable to lower temp less than 101.0 after medication given *Warm salt water gargles may help to soothe the throat *Throat Lozenges *Warm fluids like tea with honey may help to soothe the throat *Sleep elevated *Humidifier/Vaporizer Drink extra fluids with and between meals. If you have difficulty drinking, try very small amounts of water or suck on ice chips. ? Avoid fruit juices, as these do not replace minerals and can actually increase diarrhea. ? Children and adults can use sports drinks to replenish electrolytes. Younger children and infants should use products formulated for children, like oral rehydration solutions. ? Eat food in small amounts and let your stomach recover. ? Get lots of rest. You may feel tired or weak. ? No greasy or fried foods for the next 24-48 hours BRAT diet Bananas Rice Apples and [place] ? Make sure to drink plenty of liquids ? Return if needed ? Straight to ER if any life threatening symptoms ? Zofran as prescribed ? Follow up with family doctor in the next 48-72 hours if no improvement or any worsening of symptoms Follow up IMMEDIATELY for new or worsening symptoms or no Noticeable improvement over the next 48-72 hours. 911 for difficulty breathing or swallowing You were tested for today for COVID19 your test result should be back in the next 24-48 hours, you may call to the [facility] to see if your test results are back in the next 48 hours [phone] [facility] hours are 9am-9pm You was given a handout with instructions for Self Quarantine and Self isolation for while you wait on test results and what to do if they are positive If you are positive the Health Dept will be contacting you also Make sure to take your Vitamins Vit. C Vit D and Zinc if you can take them Prescriptions: Ondansetron [Zofran 4mg ODT] 4 mg PO TIDP PRN #12 tab PRN Reason: Nausea Transmission Status: Received by [facility] Enabled Employment Referrals: Ian Wheeler [Primary Care Provider] - As needed Time of Disposition: 18:02 Medical Decision Making - Sohan Inquiry Pt receiving controlled substance: No Sohan was queried for this patient: No Vital Signs: 02/16/21 16:33 Temperature 102.7 F H Temperature Source Oral Pulse Rate [Left Radial] 118 H Respiratory Rate 19 Blood Pressure [Right Arm] 131/69 Blood Pressure Mean [Right Arm] 89 Blood Pressure Source [Right Arm] Automatic Cuff Blood Pressure Position [Right Arm] Sitting 02 Sat by Pulse Oximetry 100 Oxygen Delivery Method Room Air Orders (Tests/Meds): ED MEDICATIONS Discontinued Medications Generic Name Dose Route Start Last Admin Trade Name Freq PRN Reason Stop Dose Admin Acetaminophen 650 mg 02/16/21 17:22 02/16/21 17:36 Acetaminophen 325mg Tab PO 02/16/21 17:23 650 mg ONCE ONE Administration Ibuprofen 600 mg 02/16/21 17:22 02/16/21 17:36 Ibuprofen 600 Mg Tablet PO 02/16/21 17:23 600 mg ONCE ONE Administration ORDERS Category Date Time Status Covid-19 Nasal PCR ([facility]) Routine Lab 02/16/21 16:46 Received [facility] [place] HPI - General Stated complaint: fever,Stomach hurts Time Seen by Provider: 02/16/21 17:22 Mode of Arrival: Ambulatory Source of Information: Patient Limitations: No Limitations Description of Symptoms (Recalled from Triage Doc. by RN): c/o upset stomach, fever since this morning HEENT Symptoms (Recalled from RN notes): Yes Resp Symptoms (Recalled from RN notes): No Skin Symptoms (Recalled from RN notes)
[2021-02-16 18:08] VITALS: BP 131/69; PULSE 118; RESP 19; TEMP 38.3; O2SAT 100
== END 2021-02-16 18:11 | disposition home or self-care (01) ==
PROVIDERS: Emergency Provider Nurse Practitioner; PCP Family Medicine
DX: B34.9 Viral infection, unspecified (principal); Z20.822 Contact with and (suspected) exposure to COVID-19
CPT/HCPCS: 99202; G0463; U0003

== ENCOUNTER 2021-02-18 15:15 | Emergency (ER) | payer MEDICAID, SELFPAY ==
[2021-02-18 15:16] VITALS: BP 126/73; PULSE 99; RESP 18; TEMP 36.8; O2SAT 100; BMI 22.4
--- NOTE | 2021-02-18 16:18 | HMH.EDGENADL ---
ED Disposition Clinical Impression: Dehydration Fever Qualifiers: Fever type: unspecified Qualified Code(s): R50.9 - Fever, unspecified Vomiting Qualifiers: Vomiting type: unspecified Vomiting Intractability: non-intractable Nausea presence: with nausea Qualified Code(s): R11.2 - Nausea with vomiting, unspecified Disposition: Home, Self-Care Condition on Discharge: Fair Instructions: DI for Dehydration -- Adult, DI for Fever (Symptom) -- Adult, Nausea and Vomiting-Adult Additional Instructions: Drink plenty of fluids. Continue Zofran for nausea. Continue Tylenol or ibuprofen for fever. Antibiotic as prescribed, begin taking tomorrow afternoon. Return to the emergency department if uncontrollable vomiting, uncontrollable fever, severe pain. Urine culture has been performed, results generally take 2 to 3 days. Follow-up the results of this test with your primary care provider within 2 to 3 days. Prescriptions: Cefdinir [Omnicef 300mg Capsule] 300 mg PO BID #20 cap Transmission Status: Pending to [facility] [employer] Referrals: Ian Wheeler [Primary Care Provider] - - Critical Care Critical Care Time: No Attestation: On 02/18/21, the high probability of a clinically significant, sudden or life threatening deterioration of the following system(s) required my full and direct attention, intervention and personal management. The time I documented below is in addition to time spent performing reported procedures but includes the following listed in this critical care notation. Medical Decision Making - Medical Records Medical records reviewed: Yes: I reviewed the patient's medical records. MR Comment: Reviewed urgent treatment center visit 02/16/2021. Covid test performed, negative. Prescribed Zofran. - Sohan Inquiry Pt receiving controlled substance: No Vital Signs: 02/18/21 15:16 02/18/21 16:56 02/18/21 17:00 Temperature 98.2 F Temperature Source Oral Pulse Rate 80 Pulse Rate [Left] 99 H Respiratory Rate 18 Blood Pressure 121/68 116/65 Blood Pressure [Right Arm] 126/73 Blood Pressure Mean 86 82 Blood Pressure Mean [Right Arm] 90 Blood Pressure Source [Right Arm] Automatic Cuff Blood Pressure Position [Right Arm] Sitting 02 Sat by Pulse Oximetry 100 100 Oxygen Delivery Method Room Air - Lab Data Lab Results 02/18/21 16:00: WBC 14.1 H, RBC 4.24, Hgb 12.3, Hct 37.5, MCV 88.5, MCH 29.0, MCHC 32.8, RDW 13.7, Plt Count 223, MPV 7.9, Neut % (Auto) 78.5, Lymph % (Auto) 14.9, [place] % (Auto) 5.9, Eos % (Auto) 0.1, Baso % (Auto) 0.6, Neut # (Auto) 11.1 H, Lymph # (Auto) 2.1, [place] # (Auto) 0.8, Eos # (Auto) 0.0, Baso # (Auto) 0.1 02/18/21 16:00: Sodium 140, Potassium 4.4, Chloride 106, Carbon Dioxide 15 L, Anion Gap 23.4 H, BUN 12, Creatinine 0.90, Estimated Creat Clear 115, Estimated GFR 78, Est GFR ( Amer) 94, Glucose 101 H, Calcium 9.6, Total Bilirubin 1.1, AST 25, ALT 17, Alkaline Phosphatase 76, Total Protein 8.4 H, Albumin 4.9, Globulin 3.5 H, Albumin/Globulin Ratio 1.4, Lipase 15 L 02/18/21 16:00: Serum HCG, Qual Negative 02/18/21 19:00: Urine Color Yellow, Urine Appearance Clear, Urine pH 6.5, Ur Specific [place] 1.010, Urine Protein Trace, Urine Glucose (UA) Negative, Urine Ketones 2+, Urine Blood 3+, Urine Nitrate Negative, Urine Bilirubin Negative, Urine Urobilinogen 2.0, Ur Leukocyte Esterase Negative, Urine RBC 20-50, Urine WBC 5-10, Ur Squamous Epith Cells Occasional Result diagrams: 02/18/21 16:00 02/18/21 16:00 Orders (Tests/Meds): ED MEDICATIONS Generic Name Dose Route Start Last Admin Trade Name Freq PRN Reason Stop Dose Admin Ceftriaxone Sodium 1 gm/ 50 mls @ 100 mls/hr 02/18/21 19:45 Sodium Chloride IV 03/04/21 19:44 Q24H JOHANNA Discontinued Medications Generic Name Dose Route Start Last Admin Trade Name Freq PRN Reason Stop Dose Admin Iopamidol 75 ml 02/18/21 18:11 02/18/21 18:12 Iopamidol-370 (76%);100ml Bottle IV
[2021-02-18 16:42] LABS: Basophils # 0.1 K/mm3 (0-0.2); Basophils % 0.6 % (0.1-2.0); Eosinophils % 0.1 % (0.1-12.0); Hematocrit 37.5 % (37.0-47.0); Hemoglobin 12.3 g/dL (12.2-16.2); Lymphocytes # 2.1 K/mm3 (0.7-4.5); Lymphocytes % 14.9 % (10-50); Mean Corpuscular HGB Conc 32.8 g/dL (31.8-35.4); Mean Corpuscular Volume 88.5 fl (81-99); Mean Platelet Volume 7.9 fl (7.4-10.4); Monocytes # 0.8 K/mm3 (0.1-1.0); Monocytes % 5.9 % (1.7-9.3); Neutrophils # 11.1 K/mm3 (1.8-7.8); Neutrophils % 78.5 % (37.0-80.0); Platelet Count 223 K/mm3 (142-424); Red Blood Count 4.24 M/mm3 (4.20-5.40); Red Cell Distribution Width 13.7 % (11.5-17.5); White Blood Count 14.1 K/mm3 (4.8-10.8)
[2021-02-18 16:49] LABS: Chloride 106 mmol/L (98-107); HCG Qualitative, Serum Negative (Negative); Potassium 4.4 mmoL/L (3.5-5.1); Sodium 140 mmol/L (136-145)
[2021-02-18 16:51] LABS: Alanine Aminotransferase 17 U/L (12-78); Alkaline Phosphatase 76 U/L (38-126); Aspartate Amino Transferase 25 U/L (14-36); Bilirubin,Total 1.1 mg/dl (0.2-1.3); Blood Urea Nitrogen 12 mg/dl (7-17); Creatinine Clearance Estimated 115 mL/min (50-200); Estimated Glomerular Filt Rate 78 ml/min (>60); GFR (African American) 94 ML/MIN (>60)
[2021-02-18 16:52] LABS: Albumin Level 4.9 g/dl (3.5-5.0); Albumin/Globulin Ratio 1.4 (1.1-1.8); Anion Gap 23.4 mEq/L (5-15); Calcium 9.6 mg/dl (8.4-10.2); Carbon Dioxide 15 mmol/L (22.0-30.0); Globulin 3.5 g/dL (1.3-3.2); Glucose 101 mg/dl (74-100); Lipase 15 U/L (23-300); Total Protein,Serum 8.4 g/dl (6.3-8.2)
[2021-02-18 16:56] VITALS: BP 121/68; PULSE 80; O2SAT 100
[2021-02-18 17:00] VITALS: BP 116/65
--- NOTE | 2021-02-18 17:09 | CT_ITS ---
PROCEDURE INFORMATION: Exam: CT Abdomen And Pelvis With Contrast Exam date and time: 02/18/2021 5:09 PM Age: 25 years old Clinical indication: Abdominal pain; Prior surgery; Additional info: Abdo pain, vomiting, fever TECHNIQUE: Imaging protocol: Computed tomography of the abdomen and pelvis with contrast. Radiation optimization: All CT scans at this facility use at least one of these dose optimization techniques: automated exposure control; mA and/or kV adjustment per patient size (includes targeted exams where dose is matched to clinical indication); or iterative reconstruction. Contrast material: ISOVUE; Contrast volume: 75 ml; Contrast route: IV; COMPARISON: OBLM US OB limited position 03/19/2018 10:46 AM FINDINGS: Liver: Normal. No mass. Gallbladder and bile ducts: Normal. No calcified stones. No ductal dilation. Pancreas: Normal. No ductal dilation. Spleen: Normal. No splenomegaly. Adrenal glands: Normal. No mass. Kidneys and ureters: Patchy bilateral nephrogram with an almost striated appearance. Findings are most concerning for infection in this patient. No hydronephrosis. Stomach and bowel: Unremarkable. No obstruction. No mucosal thickening. Appendix: No evidence of appendicitis. Intraperitoneal space: Unremarkable. No free air. No significant fluid collection. Vasculature: Unremarkable. No abdominal aortic aneurysm. Renal veins appear patent. Lymph nodes: Unremarkable. No enlarged lymph nodes. Urinary bladder: Bladder is unremarkable. Reproductive: Unremarkable as visualized. Bones/joints: Unremarkable. No acute fracture. Soft tissues: Unremarkable. IMPRESSION: Striated nephrogram compatible with pyelonephritis in this patient
[2021-02-18 19:19] LABS: Microscopic, Urine URINE MICROSCOPIC (MICROSCOPIC)
[2021-02-18 19:20] LABS: Appearance,Urine CLEAR (Clear); Bilirubin,Urine Negative (Negative); Blood, Urine 3+ (Negative); Color,Urine YELLOW (Yellow); Glucose,Urine (UA) Negative (Negative); Ketones,Urine 2+ (Negative); Leukocyte Esterase,Urine Negative (Negative); Nitrate,Urine Negative (Negative); PH,Urine 6.5 (5.0-8.5); Protein,Urine TRACE (Negative)
[2021-02-18 19:25] LABS: RBC,Urine 20-50 #/hpf (0-3); Squamous Epithelial Cell,Urine Occasional #/hpf (0-5)
[2021-02-18 19:57] VITALS: BP 131/71; PULSE 77; RESP 16; TEMP 36.8; O2SAT 99
== END 2021-02-18 20:14 | disposition home or self-care (01) ==
PROVIDERS: Emergency Provider Emergency Medicine; PCP Family Medicine
DX: E86.0 Dehydration (principal); R50.9 Fever, unspecified
CPT/HCPCS: 74177; 80053; 81001; 83690; 84703; 85025; 87086; 96365; 96366; 96375; 99282; Q9967

== ENCOUNTER 2022-10-12 13:07 | Emergency (ER) | payer MEDICAID, SELFPAY ==
[2022-10-12 13:10] VITALS: BP 121/76; PULSE 105; RESP 18; TEMP 36.8; O2SAT 98; BMI 22.4
--- NOTE | 2022-10-12 13:24 | EXP.UTC ---
Discharge Plan Disposition Patient Disposition: Home, Self-Care Condition: Good Prescriptions Prescriptions: New amoxicillin 875 mg tablet 875 mg PO BID 10 Days Qty: 20 0RF Referrals Follow up/Referrals: Ian Wheeler [Primary Care Provider] - See instructions Clinical Impressions Clinical Impression: Streptococcal adenotonsillitis Instructions Patient Instructions: DI for Strep Throat Discharge ED Provider: Bailey Soria [facility] General Stated complaint: sore throat,hard to swallow Mode of Arrival: Ambulatory Source of Information: Patient Limitations: No Limitations Time Seen by Provider: 10/12/22 13:18 Description of Symptoms (Recalled from Triage Doc. by RN): PATIENT C/O SORE THROAT WITH WHITE AND PURPLE SPOTS THAT STARTED YESTERDAY HEENT Symptoms (Recalled from RN notes): Yes Resp Symptoms (Recalled from RN notes): No Skin Symptoms (Recalled from RN notes): No MS Symptoms (Recalled from RN notes): No Functional Status (Recalled from RN notes): WNL History of Present Illness Provider Complaint: Pt reports that her throat started hurting yesterday and when she looked at her throat today she noticed some discoloration. She states that her throat hurts to swallow. She denies sinus drainage or cough. She denies taking anything for her symptoms. Related Data Previous Rx's Medication Instructions Recorded amoxicillin 875 mg tablet 875 mg PO BID 10 days #20 tabs 10/12/22 Allergies Allergy/AdvReac Type Severity Reaction Status Date / Time No Known Allergies Allergy Verified 03/13/18 14:01 Worker's Comp Is this a Worker's Comp case?: No [facility] Disclaimer: The information contained in this section may have been updated after the patient was seen, as this information can be updated by other users. Social History Smoking Status: Never smoker alcohol intake: never substance use type: denies use current occupational status: unemployed Travel in the last 8 weeks: None ROS Obtained: Yes All systems reviewed & no additional complaints except as documented Constitutional Constitutional: Reports system reviewed and no additional complaints, except as documented, Reports fever(s) and Reports malaise Eyes Eyes: Reports system reviewed and no additional complaints, except as documented ENT Ears, Nose, Mouth, and Throat: Reports odynophagia and Reports sore throat Cardiovascular Cardiovascular: Reports system reviewed and no additional complaints, except as documented Respiratory Respiratory: Reports system reviewed and no additional complaints, except as documented Gastrointestinal Gastrointestingal: Reports system reviewed and no additional complaints, except as documented and odynophagia Genitourinary Female Genitourinary: Reports system reviewed and no additional complaints, except as documented Musculoskeletal Musculoskeletal: Reports system reviewed and no additional complaints, except as documented Integumentary/Breasts Skin/Breast: Reports system reviewed and no additional complaints, except as documented Neurologic Neurologic: Reports system reviewed and no additional complaints, except as documented Endocrine Endocrine: Reports system reviewed and no additional complaints, except as documented Hematologic/Lymphatic Henatologic/Lymphatic: Reports system reviewed and no additional complaints, except as documented Allergic/Immunologic Allergic/Immunologic: Reports system reviewed and no additional complaints, except as documented Physical Exam General General appearance: alert and in no apparent distress Head Head exam: atraumatic and normocephalic Eye Eye exam: Present normal appearance Expanded ENT Exam External ear exam: Present normal external inspection Nasal speculum exam: Bilateral: normal Mouth exam: Present normal external inspection Teeth exam: Present normal inspection Throat exam: Present tonsillar erythema and tonsillar exudate Neck Neck exam: Present lym
[2022-10-12 13:27] VITALS: BP 121/76; PULSE 105; RESP 18; TEMP 36.8; O2SAT 98
[2022-10-12 13:27] LABS: UTC Strep Screen (Rapid) Positive (Negative)
== END 2022-10-12 13:29 | disposition home or self-care (01) ==
LOC: ER 13:11 → UTC 13:14
PROVIDERS: Emergency Provider Nurse Practitioner Family; PCP Family Medicine
DX: J03.00 Acute streptococcal tonsillitis, unspecified (principal)
CPT/HCPCS: 87880; 99212; 99214; G0463

== ENCOUNTER 2022-10-24 10:45 | Emergency (ER) | payer MEDICAID, SELFPAY ==
[2022-10-24 10:45] VITALS: BP 120/70; PULSE 89; RESP 18; TEMP 37.2; O2SAT 100; BMI 22.4
--- NOTE | 2022-10-24 10:59 | EXP.UTC ---
Discharge Plan Disposition Patient Disposition: Home, Self-Care Condition: Good Prescriptions Prescriptions: New azithromycin [Zithromax Z-John] 250 mg tablet See Rx Instructions .ROUTE .COMPLEX 5 Days Qty: 6 0RF Rx Instructions: For 250 mg dose pack: take 500 mg today (day 1), then 250 mg for 4 days (days 2-5) Referrals Follow up/Referrals: Ian Wheeler [Primary Care Provider] - See instructions Activity Restrictions/Add. Instructions Additional Instructions/Restrictions: *Monitor Temp, Over the counter Motrin or Tylenol as directed/as needed Tylenol every 4 hours and Motrin every 6 hours (as long as your family doctor has told you that you can take it) for fever or pain. and straight to ER if unable to lower temp less than 101.0 after medication given *Warm salt water gargles may help to soothe the throat *Throat Lozenges? *Warm fluids like tea with honey may help to soothe the throat? *Sleep elevated *Humidifier/Vaporizer *If you did not take Penicillin shot or was unable to, start taking antibiotic immediately and make sure that you take it for the FULL length of time although you should start to feel better in 24-48 hours *change toothbrush and toothpaste 24-48 hours after starting to take antibiotics so you do not reinfect yourself Monitor Temp. Tylenol and/or Ibuprofen as needed. ER if fever is no less than 101 despite alternating Tylenol and Ibuprofen * Encourage fluids, water, Gatorade, powerade, pedialyte if infant/toddler/or child *Cold fluids, popsicles and ice cream may feel good on his throat Follow up IMMEDIATELY for new or worsening symptoms or no Noticeable improvement over the next 48-72 hours. 911 for difficulty breathing or swallowing Clinical Impressions Clinical Impression: Strep throat Instructions Patient Instructions: Strep Throat, DI for Strep Throat Discharge ED Provider: Lesly Noriega [facility] [place] H[place] General Stated complaint: Sore throat no improvement Time Seen by Provider: 10/24/22 10:59 History of Present Illness Provider Complaint: Patient states that she was treated for strep throat a few weeks ago States that it got better while on Amoxil but after she started the throat pain started back and she has blisters on her throat again so she came in Related Data Previous Rx's Medication Instructions Recorded azithromycin 250 mg tablet See Rx Instructions PO .COMPLEX 5 10/24/22 (Zithromax Z-John) days #6 tabs Allergies Allergy/AdvReac Type Severity Reaction Status Date / Time No Known Allergies Allergy Verified 10/24/22 11:01 [facility] Disclaimer: The information contained in this section may have been updated after the patient was seen, as this information can be updated by other users. Social History Smoking Status: Never smoker alcohol intake: never substance use type: denies use current occupational status: unemployed Travel in the last 8 weeks: None ROS Obtained: Yes All systems reviewed & no additional complaints except as documented and Yes Systems reviewed as appropriate & no additional complaints except as documented Eyes Eyes: Reports system reviewed and no additional complaints, except as documented and Reports as per HPI ENT Ears, Nose, Mouth, and Throat: Reports system reviewed and no additional complaints, except as documented, Reports as per HPI and Reports sore throat Cardiovascular Cardiovascular: Reports system reviewed and no additional complaints, except as documented and Reports as per HPI Respiratory Respiratory: Reports system reviewed and no additional complaints, except as documented and Reports as per HPI Gastrointestinal Gastrointestingal: Reports system reviewed and no additional complaints, except as documented and as per HPI Physical Exam General General appearance: alert and in no apparent distress Expanded ENT Exam Throat exam: Present tonsillar
[2022-10-24 11:19] LABS: UTC Strep Screen (Rapid) Positive (Negative)
[2022-10-24 11:25] VITALS: BP 116/78; PULSE 87; RESP 19; TEMP 37.2; O2SAT 99
== END 2022-10-24 11:26 | disposition home or self-care (01) ==
PROVIDERS: Emergency Provider Nurse Practitioner; PCP Family Medicine
DX: J02.0 Streptococcal pharyngitis (principal)
CPT/HCPCS: 87880; 99212; 99214; G0463

== ENCOUNTER 2023-01-17 16:54 | Emergency (ER) | payer MEDICAID, SELFPAY ==
[2023-01-17 17:00] VITALS: BP 128/76; PULSE 86; RESP 19; TEMP 37.2; O2SAT 99; BMI 21.7
--- NOTE | 2023-01-17 17:18 | EXP.UTC ---
Discharge Plan Disposition Patient Disposition: Home, Self-Care Condition: Good Prescriptions Prescriptions: New amoxicillin-pot clavulanate 875-125 mg Tablet 1 tab PO Q12H Qty: 20 0RF fluticasone propionate [Flonase Allergy Relief] 50 mcg/actuation spray,suspension 1 - 2 spray intranasal DAILY Qty: 16 0RF Rx Instructions: administer into each nostril daily Referrals Follow up/Referrals: Ian Wheeler [Primary Care Provider] - See instructions Activity Restrictions/Add. Instructions Additional Instructions/Restrictions: Take medication as prescribed FOllow up with your Family Doctor if no improvement or any worsening of symptoms Return if needed Over the counter Motrin and/or Tylenol for fever and pain Clinical Impressions Clinical Impression: Otitis media Qualifiers: Otitis media type: unspecified Laterality: bilateral Qualified Code(s): H66.93 - Otitis media, unspecified, bilateral Instructions Patient Instructions: Ear Infections (Alternative Therapy), Middle Ear Infection, Amoxicillin and Clavulanic Acid Discharge ED Provider: Lesly Noriega [facility] General Stated complaint: congestion, headahces Mode of Arrival: Ambulatory Source of Information: Patient Limitations: No Limitations Time Seen by Provider: 01/17/23 17:18 Description of Symptoms (Recalled from Triage Doc. by RN): PATIENT C/O SINUS CONGESTION/DRAINAGE, COUGH, HEADACHE AND DECREASED HEARING IN RIGHT EAR X 3 DAYS HEENT Symptoms (Recalled from RN notes): Yes Resp Symptoms (Recalled from RN notes): Yes Skin Symptoms (Recalled from RN notes): No MS Symptoms (Recalled from RN notes): No Functional Status (Recalled from RN notes): WNL History of Present Illness Provider Complaint: Patient states she has been having severe ear pain in her right ear, nasal congestion cough and decreased hearing in her right ear States that today it was feeling worse so she came in to get it checked Related Data Previous Rx's Medication Instructions Recorded amoxicillin 875 mg-potassium 1 tab PO Q12H #20 tabs 01/17/23 clavulanate 125 mg tablet fluticasone propionate 50 1 - 2 spray intranasal DAILY #16 01/17/23 mcg/actuation nasal grams spray,suspension (Flonase Allergy Relief) Allergies Allergy/AdvReac Type Severity Reaction Status Date / Time No Known Allergies Allergy Verified 10/24/22 11:01 Worker's Comp Is this a Worker's Comp case?: No [facility] Disclaimer: The information contained in this section may have been updated after the patient was seen, as this information can be updated by other users. Surgical History (Updated 01/17/23 @ 17:15 by Tanya Bright RN) History of section History of tubal ligation Social History Smoking Status: Never smoker alcohol intake: never substance use type: denies use current occupational status: unemployed Travel in the last 8 weeks: None ROS Obtained: Yes All systems reviewed & no additional complaints except as documented and Yes Systems reviewed as appropriate & no additional complaints except as documented Constitutional Constitutional: Reports system reviewed and no additional complaints, except as documented, Reports as per HPI and Reports headache(s) ENT Ears, Nose, Mouth, and Throat: Reports system reviewed and no additional complaints, except as documented, Reports as per HPI, Reports otalgia, Reports headache(s), Reports nasal congestion and Reports sinus pressure Cardiovascular Cardiovascular: Reports system reviewed and no additional complaints, except as documented and Reports as per HPI Respiratory Respiratory: Reports system reviewed and no additional complaints, except as documented, Reports as per HPI and Reports cough Gastrointestinal Gastrointestingal: Reports system reviewed and no additional complaints, except as documented and as per HPI Genitourinary Female Genitourinary: Reports system rev
[2023-01-17 17:25] VITALS: BP 128/76; PULSE 86; RESP 19; TEMP 37.2; O2SAT 99
== END 2023-01-17 17:30 | disposition home or self-care (01) ==
PROVIDERS: Emergency Provider Nurse Practitioner; PCP Family Medicine
DX: H66.93 Otitis media, unspecified, bilateral (principal)
CPT/HCPCS: 99212; 99214; G0463

== ENCOUNTER 2023-01-22 11:31 | Emergency (ER) | payer MEDICAID, SELFPAY ==
[2023-01-22 12:00] VITALS: BP 131/86; PULSE 73; RESP 18; TEMP 37.3; O2SAT 98; BMI 21.7
--- NOTE | 2023-01-22 12:19 | EXP.UTC ---
Discharge Plan Disposition Patient Disposition: Home, Self-Care Condition: Good Prescriptions Prescriptions: New azithromycin [Zithromax Z-John] 250 mg tablet See Rx Instructions .ROUTE .COMPLEX 5 Days Qty: 6 0RF Rx Instructions: For 250 mg dose pack: take 500 mg today (day 1), then 250 mg for 4 days (days 2-5) prednisone [prednisone] 20 mg tablet 20 mg PO BID 5 Days Qty: 10 0RF guaifenesin [Mucinex] 600 mg tablet extended release 12hr 600 - 1,200 mg PO BID PRN (Reason: cough) Qty: 20 0RF albuterol sulfate [Proventil HFA] 90 mcg/actuation HFA aerosol inhaler 1 inh inhalation Q4-6H PRN (Reason: shortness of breath or wheezing) Qty: 8.5 0RF No Action amoxicillin-pot clavulanate 875-125 mg Tablet 1 tab PO Q12H Qty: 20 0RF fluticasone propionate [Flonase Allergy Relief] 50 mcg/actuation spray,suspension 1 - 2 spray intranasal DAILY Qty: 16 0RF Rx Instructions: administer into each nostril daily Referrals Follow up/Referrals: Provider,Referral, MD [Primary Care Provider] - See instructions Activity Restrictions/Add. Instructions Additional Instructions/Restrictions: Contiue taking Augmentin and added a Zpack Take medications as prescribed Follow up with your Family Doctor if no improvement or any worsening of symptoms Return if needed Make sure to drink plenty of water with the mucinex Straight to ER if any life threatening symptoms Clinical Impressions Clinical Impression: Bronchitis Instructions Patient Instructions: Acute Bronchitis, DI for Acute Bronchitis Discharge ED Provider: Lesly Noriega [facility] [place] HPI General Stated complaint: Cough w/mucus, chest congestion Mode of Arrival: Ambulatory Source of Information: Patient Limitations: No Limitations Time Seen by Provider: 01/22/23 12:19 Description of Symptoms (Recalled from Triage Doc. by RN): PATIENT C/O CHEST CONGESTION AND RUMBLING IN CHEST WHEN SHE'S BREATHING. SHE STATES SHE WAS TREATED LAST WEEK FOR A SINUS INFECTION HEENT Symptoms (Recalled from RN notes): No Resp Symptoms (Recalled from RN notes): Yes Skin Symptoms (Recalled from RN notes): No MS Symptoms (Recalled from RN notes): No Functional Status (Recalled from RN notes): WNL History of Present Illness Provider Complaint: Patient states that she has been on medication for sinus and ear infection for about 5 days States that now she is having cough and chest congestion and at times she will cough up mucous States that she was worried that the antibiotic may not help and needed something else so she came in States that pain in her ears and sinuses is much improved Related Data Previous Rx's Medication Instructions Recorded amoxicillin 875 mg-potassium 1 tab PO Q12H #20 tabs 01/17/23 clavulanate 125 mg tablet fluticasone propionate 50 1 - 2 spray intranasal DAILY #16 01/17/23 mcg/actuation nasal grams spray,suspension (Flonase Allergy Relief) albuterol sulfate 90 mcg/actuation 1 inh inhalation Q4-6H PRN 01/22/23 aerosol inhaler (Proventil HFA) shortness of breath or wheezing #8.5 grams azithromycin 250 mg tablet See Rx Instructions PO .COMPLEX 5 01/22/23 (Zithromax Z-John) days #6 tabs guaifenesin 600 mg tablet, 600 - 1,200 mg PO BID PRN cough 01/22/23 extended release 12 hr (Mucinex) #20 tabs prednisone 20 mg tablet 20 mg PO BID 5 days #10 tabs 01/22/23 Allergies Allergy/AdvReac Type Severity Reaction Status Date / Time No Known Allergies Allergy Verified 10/24/22 11:01 Worker's Comp Is this a Worker's Comp case?: No [facility] Dis[facility]: The information contained in this section may have been updated after the patient was seen, as this information can be updated by other users. Surgical History (Updated 01/17/23 @ 17:15 by Tanya Bright RN) History of section History of tubal ligation Social History Smoking Status: Never smoker alcohol intake: never sub
[2023-01-22 12:32] VITALS: BP 131/86; PULSE 73; RESP 18; TEMP 37.3; O2SAT 98
== END 2023-01-22 12:35 | disposition home or self-care (01) ==
PROVIDERS: Emergency Provider Nurse Practitioner
DX: J20.9 Acute bronchitis, unspecified (principal)
CPT/HCPCS: 99212; 99214; G0463

== ENCOUNTER 2023-03-08 09:15 | Emergency (ER) | payer MEDICAID, SELFPAY ==
[2023-03-08 09:16] VITALS: BP 141/95; PULSE 104; RESP 16; TEMP 36.8; O2SAT 100; BMI 21.1
[2023-03-08 09:30] VITALS: BP 131/68; PULSE 75; O2SAT 98
--- NOTE | 2023-03-08 09:40 | PC.NURSE ---
Dr. Newton at to speak with pt
--- NOTE | 2023-03-08 09:47 | XR_ITS ---
FINAL REPORT TECHNIQUE: Chest PA & Lateral CLINICAL HISTORY: Shortness of breath, cough of red sputum, RLL crackles COMPARISON: None FINDINGS: 2 views of the chest were performed. The heart size is normal. The mediastinum is within normal limits. There is no acute cardiopulmonary process. There are no pleural effusions. There is no pneumothorax. The bony thorax appears intact. IMPRESSION: No acute cardiopulmonary process. Reviewed, Interpreted and Dictated by Prateek Patiño MD Transcribed by Sola Finn Authenticated and . [facility]
--- NOTE | 2023-03-08 09:49 | HMH.EDGENADL ---
Discharge Plan Disposition Patient Disposition: Home, Self-Care Condition: Good Prescriptions Prescriptions: New dextromethorphan-guaifenesin 10-200 mg capsule 1 tab-cap PO Q8H Qty: 90 0RF Discontinued guaifenesin [Mucinex] 600 mg tablet extended release 12hr 600 - 1,200 mg PO BID PRN (Reason: cough) Qty: 20 0RF No Action azithromycin [Zithromax Z-John] 250 mg tablet See Rx Instructions .ROUTE .COMPLEX 5 Days Qty: 6 0RF Rx Instructions: For 250 mg dose pack: take 500 mg today (day 1), then 250 mg for 4 days (days 2-5) prednisone [prednisone] 20 mg tablet 20 mg PO BID 5 Days Qty: 10 0RF albuterol sulfate [Proventil HFA] 90 mcg/actuation HFA aerosol inhaler 1 inh inhalation Q4-6H PRN (Reason: shortness of breath or wheezing) Qty: 8.5 0RF amoxicillin-pot clavulanate 875-125 mg Tablet 1 tab PO Q12H Qty: 20 0RF fluticasone propionate [Flonase Allergy Relief] 50 mcg/actuation spray,suspension 1 - 2 spray intranasal DAILY Qty: 16 0RF Rx Instructions: administer into each nostril daily Referrals Follow up/Referrals: Ian Wheeler [Primary Care Provider] - See instructions Activity Restrictions/Add. Instructions Additional Instructions/Restrictions: I recommend stoping smoking and trialing claratin or zyrtec for seasonal allergies. Please return with any new or worsening symptoms. Clinical Impressions Clinical Impression: Bronchitis Instructions Patient Instructions: DI for Gastrointestinal Bleeding Discharge ED Provider: Hao Newton General Adult HPI General Chief complaint: GI Bleed Stated complaint: coughing up blood Time Seen by Provider: 03/08/23 09:26 Mode of Arrival: Ambulatory Source of Information: Patient Limitations: No Limitations Description of Symptoms (Recalled from ER Triage Doc. by RN): c/o bright red blood in her mucus that started this morning x 2, states that she had bronchitis a month ago with 2 rounds of antibiotics. History of Present Illness HPI narrative: Patient presents for evaluation of 1 episode of bloody sputum in the setting of multiple weeks of nonproductive cough. No sick contacts, no fevers, no chills, no hematemesis, patient was diagnosed approximately 2 months ago with bronchitis and completed multiple rounds of antibiotics. She does note smoking history socially. No presyncope or syncope or chest pain or palpitations. No abdominal pain. No leg pain or leg swelling. No personal or family history of DVT or PE. Related Data Previous Rx's Medication Instructions Recorded amoxicillin 875 mg-potassium 1 tab PO Q12H #20 tabs 01/17/23 clavulanate 125 mg tablet fluticasone propionate 50 1 - 2 spray intranasal DAILY #16 01/17/23 mcg/actuation nasal grams spray,suspension (Flonase Allergy Relief) albuterol sulfate 90 mcg/actuation 1 inh inhalation Q4-6H PRN 01/22/23 aerosol inhaler (Proventil HFA) shortness of breath or wheezing #8.5 grams azithromycin 250 mg tablet See Rx Instructions PO .COMPLEX 5 01/22/23 (Zithromax Z-John) days #6 tabs prednisone 20 mg tablet 20 mg PO BID 5 days #10 tabs 01/22/23 dextromethorphan-guaifenesin 10 1 tab-cap PO Q8H #90 caps 03/08/23 mg-200 mg capsule Allergies Allergy/AdvReac Type Severity Reaction Status Date / Time No Known Allergies Allergy Verified 10/24/22 11:01 [facility] Disclaimer: The information contained in this section may have been updated after the patient was seen, as this information can be updated by other users. Surgical History (Updated 01/17/23 @ 17:15 by Tanya Bright RN) History of section History of tubal ligation Social History Smoking Status: Current every day smoker tobacco type: cigarettes alcohol intake: never substance use type: denies use current occupational status: unemployed Travel in the last 8 weeks: None ROS Obtained: Yes Systems reviewed as appropria
[2023-03-08 10:01] VITALS: BP 144/57; PULSE 86; O2SAT 100
[2023-03-08 10:02] LABS: Coronavirus 19, PCR Not Detected (NotDetected); Influenza A, PCR Not Detected (NotDetected); Influenza B, PCR Not Detected (NotDetected)
--- NOTE | 2023-03-08 10:23 | PC.NURSE ---
Rounded on pt. No needs voiced. Call light remains within reach.
[2023-03-08 10:30] VITALS: BP 149/85; PULSE 78; O2SAT 100
[2023-03-08 11:06] VITALS: BP 118/66; PULSE 75; RESP 18; TEMP 36.9; O2SAT 99
== END 2023-03-08 11:06 | disposition home or self-care (01) ==
PROVIDERS: Emergency Provider Emergency Medicine; PCP Family Medicine
DX: J40 Bronchitis, not specified as acute or chronic (principal); R04.2 Hemoptysis; F17.210 Nicotine dependence, cigarettes, uncomplicated
CPT/HCPCS: 71046; 87636; 99284

== ENCOUNTER → 2023-03-20 02:00 | Outpatient (CLI) | payer MEDICAID, SELFPAY ==
[2023-03-20 19:06] LABS: Basophils # 0.1 K/mm3 (0-0.2); Eosinophils # 0.2 K/mm3 (0.0-0.4); Eosinophils % 2.6 % (0.1-12.0); Hematocrit 39.6 % (37.0-47.0); Hemoglobin 12.5 g/dL (12.2-16.2); Lymphocytes # 2.1 K/mm3 (0.7-4.5); Lymphocytes % 35.5 % (10-50); Mean Corpuscular HGB Conc 31.7 g/dL (31.8-35.4); Mean Corpuscular Hemoglobin 29.3 pg (27.0-31.2); Mean Corpuscular Volume 92.4 fl (81-99); Mean Platelet Volume 9.3 fl (7.4-10.4); Monocytes # 0.6 K/mm3 (0.1-1.0); Monocytes % 9.7 % (1.7-9.3); Neutrophils # 3.1 K/mm3 (1.8-7.8); Neutrophils % 51.3 % (37.0-80.0); Platelet Count 280 K/mm3 (142-424); Red Blood Count 4.29 M/mm3 (4.20-5.40); Red Cell Distribution Width 14.3 % (11.5-17.5); White Blood Count 6.1 K/mm3 (4.8-10.8)
[2023-03-20 19:32] LABS: Alanine Aminotransferase 17 U/L (12-78); Albumin Level 4.7 g/dl (3.5-5.0); Albumin/Globulin Ratio 1.3 (1.1-1.8); Alkaline Phosphatase 66 U/L (38-126); Anion Gap 15.7 mEq/L (5-15); Aspartate Amino Transferase 30 U/L (14-36); Bilirubin,Total 0.5 mg/dl (0.2-1.3); Blood Urea Nitrogen 15 mg/dl (7-17); Calcium 9.5 mg/dl (8.4-10.2); Carbon Dioxide 22 mmol/L (22.0-30.0); Chloride 104 mmol/L (98-107); Estimated Glomerular Filt Rate 101 ml/min (>60); GFR (African American) 122 ML/MIN (>60); Globulin 3.5 g/dL (1.3-3.2); Glucose 98 mg/dl (74-100); Potassium 4.7 mmoL/L (3.5-5.1); Sodium 137 mmol/L (136-145); Total Protein,Serum 8.2 g/dl (6.3-8.2)
[2023-03-20 19:50] LABS: 25-OH Vitamin D, Total 24.8 ng/mL (30-100)
[2023-03-20 20:01] LABS: Thyroid Stimulating Hormone 0.81 uIU/mL (0.465-4.68)
== END ==
PROVIDERS: PCP Nurse Practitioner Family; Visit Provider Nurse Practitioner Family
DX: R53.83 Other fatigue (principal); E55.9 Vitamin D deficiency, unspecified
CPT/HCPCS: 80053; 82306; 84443; 85025

== ENCOUNTER 2025-06-05 08:26 | Emergency (ER) | payer SELFPAY ==
[2025-06-05 08:31] VITALS: BP 141/80; PULSE 129; O2SAT 100
[2025-06-05 08:35] VITALS: BP 141/80; PULSE 126; RESP 18; TEMP 37; O2SAT 100; BMI 22.8
--- NOTE | 2025-06-05 08:46 | [facility].EDGENADL ---
Discharge Plan Disposition Patient Disposition: Home, Self-Care Prescriptions Prescriptions: New sulfamethoxazole-trimethoprim [Bactrim DS] 800-160 mg tablet 1 tab PO BID 7 Days Qty: 14 0RF cephalexin 500 mg capsule 500 mg PO QID 7 Days Qty: 28 0RF No Action cetirizine [Wal-Zyr (cetirizine)] 10 mg tablet 10 mg PO DAILY Qty: 30 3RF fluticasone propionate [Flonase Allergy Relief] 50 mcg/actuation spray,suspension 1 spray intranasal DAILY Qty: 16 2RF Rx Instructions: administer into each nostril prednisone 20 mg tablet 20 mg PO BID 5 Days Qty: 10 0RF cholecalciferol (vitamin D3) 50 mcg (2,000 unit) capsule 50 mcg PO DAILY Qty: 30 4RF cholecalciferol (vitamin D3) 1,250 mcg (50,000 unit) tablet 1,250 mcg PO WEEKLY Qty: 7 2RF Referrals Follow up/Referrals: Provider,Referral, MD [Primary Care Provider, Medical] - See instructions Activity Restrictions/Add. Instructions Additional Instructions/Restrictions: You have a small area of an abscess in the dorsal aspect of your left foot with some surrounding cellulitis and lymphangitis. This was drained and antibiotics have been prescribed to treat the soft tissue infection. This should take 48 to 72 hours to show significant improvement if you have any significant worsening such as spreading up your ankle high fevers or other concerns please return to the emergency department. Clinical Impressions Clinical Impression: Abscess of foot, Cellulitis of foot Instructions Patient Instructions: DI for Skin Abscess Print Language Print Language: Turkmen Discharge ED Provider: Erik Fernandez General Adult HPI General Chief complaint: Skin/Abscess/Foreign Body Stated complaint: infected laceration L foot Time Seen by Provider: 06/05/25 08:30 Mode of Arrival: Ambulatory Source of Information: Patient and Significant Other Description of Symptoms (Recalled from ER Triage Doc. by RN): PATIENT PRESENTS TO ED FOR LACERATION TO LEFT FOOT WHICH APPEARS INFECTED. PT REPORTS SHE DID NOT NOTICE IT UNTIL LAST NIGHT, BELIEVES IT WAS CAUSED BY ONE OF HER DOGS. WOKE THIS MORNING WITH RED STREAKING UP THE FOOT. History of Present Illness HPI narrative: Patient is a 30-year-old female who presents today with an infection on the dorsal aspect of her left foot. Believes that this is from her dogs that scratched her. There is some spreading redness and pustule formation over the last 24 hours. No fevers or chills or any systemic signs or symptoms of an illness from historical standpoint. She states her heart rate is always elevated but she is currently nervous at the moment. Related Data Previous Rx's ?Medication ?Instructions ?Recorded cetirizine 10 mg tablet (Wal-Zyr 10 mg PO DAILY #30 tabs 03/20/23 (cetirizine)) fluticasone propionate 50 1 spray intranasal DAILY #16 grams 03/20/23 mcg/actuation nasal spray,suspension (Flonase Allergy Relief) prednisone 20 mg tablet 20 mg PO BID 5 days #10 tabs 03/20/23 cholecalciferol (vitamin D3) 1,250 1,250 mcg PO WEEKLY #7 tabs 03/21/23 mcg (50,000 unit) tablet cholecalciferol (vitamin D3) 50 50 mcg PO DAILY #30 caps 03/21/23 mcg (2,000 unit) capsule cephalexin 500 mg capsule 500 mg PO QID 7 days #28 caps 06/05/25 sulfamethoxazole 800 1 tab PO BID 7 days #14 tabs 06/05/25 mg-trimethoprim 160 mg tablet (Bactrim DS) Allergies Allergy/AdvReac Type Severity Reaction Status Date / Time No Known Allergies Allergy Verified 03/20/23 09:54 [facility] Disclaimer: The information contained in this section may have been updated after the patient was seen, as this information can be updated by other users. Medical History Bronchitis Bronchitis Otitis media Strep throat Streptococcal adenotonsillitis Dehydration Vomiting Fever Viral syndrome Palpitations Pre-syncope Acute blood loss anemia delivery delivered with 39 completed weeks gestation Unstable lie of fetus Breech presentation tubal ligation planned Anemia affecting Recurrent urinary tract infection affecting Late care affecting in second trimester Urinary tract infection during in second trimester, antepartum Surgical History History of tubal ligation History of section Family History (Updated 06/05/25 @ 08:36 by Nan Leal RN) Other No significant family history Social History Smoking Status: Current every day smoker tobacco type: cigarettes alcohol intake: never substance use type: denies use current occupational status: unemployed Travel in the last 8 weeks?: None Have you lived/traveled outside [place] in past 30 days?: No Contact w/someone who lives/traveled outside [place] past 30 days?: No Exposure to someone with infectious disease in past 14 days?: No Do you have a fever (greater than 100.4 F or 38 C)?: No Have you tested positive for COVID-19?: No Exposed to someone with COVID-19 in past 14 days?: No Do you have a sore throat?: No Do you have a cough?: No Do you have any weakness?: No Do you have any diarrhea?: No Are you experiencing any unusual bleeding?: No Do you have any muscle aches/pain?: No Do you have any abdominal pain?: No Are you experiencing loss of taste or smell?: No Other Medical History Have you received the Flu Vaccine for this season: No Have you received the Pneumonia Vaccine: No ROS Obtained: Yes All systems reviewed & no additional complaints except as documented Physical Exam General General appearance: alert and in no apparent distress Respiratory Respiratory exam: Present normal lung sounds bilaterally Cardiovascular Cardiovascular exam: Present regular rate Extremities Exam Extremities exam: Present other (On the dorsal aspect of the left foot near the MTP joints of the 4th and 5th digits there is a 1 cm by half centimeter area of a pustule with surrounding cellulitis and lymphangitis spreading up the dorsal aspect of the foot) Neurological Exam Neurological exam: Present alert and oriented X3 Medical Decision Making Medical Records Screening: Per USPSTF and CDC recommendations, given the prevalence of disease in our region, it is our hospital?s policy to screen for HIV and viral Hepatitis for all patients aged 18 and over and those with ongoing risk factors. Sohan Inquiry Pt receiving controlled substance: No Vital Signs: 06/05/25 08:31 06/05/25 08:35 06/05/25 08:35 Temperature 98.6 F 98.6 F Temperature Source Oral Pulse Rate 129 H 126 H Pulse Rate [Right] 126 H Respiratory Rate 18 18 Blood Pressure 141/80 H 141/80 H Blood Pressure [Right Arm] 141/80 H Blood Pressure Mean [Right Arm] 100 02 Sat by Pulse Oximetry 100 100 100 Oxygen Delivery Method Room Air Orders (Tests/Meds): ED MEDICATIONS Generic Name Dose Route Start Last Admin Trade Name Maricel PRN Reason Stop Dose Admin Neomycin/Polymyxin/Bacitracin 0 gm 06/05/25 08:42 Nfzodzsy-Qjftrptyf-Rdohm Oint 15gm Tube TP 07/05/25 08:41 BIDP PRN Skin Irritation Discontinued Medications Generic Name Dose Route Start Last Admin Trade Name Maricel PRN Reason Stop Dose Admin Cephalexin HCl 500 mg 06/05/25 08:32 Cephalexin 500mg Capsule PO 06/05/25 08:33 ONCE ONE Lidocaine HCl 2 ml 06/05/25 08:40 Lidocaine 1% 20ml Mdv IJ 06/05/25 08:41 ONCE ONE Trimethoprim/Sulfamethoxazole 1 each 06/05/25 08:32 Sulfa/Trimethoprim 1 Tablet PO 06/05/25 08:33 ONCE ONE Medical Decision Narrative: Patient with above history and physical. Very small pustule/abscess that required drainage this was accomplished using an 18-gauge needle. Once this was opened up there was a dogear that was actually inside of the abscess/pustule itself which is likely the cause of the infection. This was removed all of the pus was drained patient was given first dose of Keflex and Bactrim in the emergency department and sent home with 7-day course. Wound management discussed return precautions emphasized patient was discharged in improved condition. Procedures Abscess I/D Site: lower extremity Side (if applicable): left Local Anesthetic: lidocaine 1% and with epi Amount of anesthesia used (mL): 2 Technique: needle aspiration Critical Care Critical Care Time Critical Care Time: No
[2025-06-05] MEDS: LIDOCAINE 1% 20ML MDV IJ (08:52)
[2025-06-05] MEDS: SULFA/TRIMETHOPRIM 1 TABLET 1 EACH PO (08:53)
[2025-06-05] MEDS: BACITRACIN-POLYMYXIN B OINT 30GM TUBE TP (08:54)
[2025-06-05 08:57] VITALS: BP 141/80; PULSE 116; RESP 16; TEMP 37; O2SAT 100
== END 2025-06-05 09:00 | disposition home or self-care (01) ==
PROVIDERS: Emergency Provider Student in an Organized Health Care Education/Training Program
DX: L02.612 Cutaneous abscess of left foot (principal); L03.116 Cellulitis of left lower limb; F17.210 Nicotine dependence, cigarettes, uncomplicated; W54.8XXA Other contact with dog, initial encounter
CPT/HCPCS: 10060; 99283; 99285; J2004